=== PATIENT | female | born 1940 | race Caucasian/White ===

== ENCOUNTER 2016-12-10 05:58 | Day surgery (SDC) | payer MEDICARE ==
[2016-12-10] VITALS (8 sets, daily range): BP systolic 116–141; BP diastolic 61–74; PULSE 55–67; RESP 11–20; O2SAT 96–100
[~2016-12-10] VITALS: Ht 154.9 cm; Wt 54.5 kg
[~2016-12-10 05:58] MED LIST: ACET325T51 PO; ASPI-973 PO; CALC-786 PO; COD1CAPS16 PO; LEVO75TA4 PO; LISI-571 PO; MULT-1018 PO; ROSU40TA PO
[2016-12-10] MEDS ORDERED: fentaNYL-PF 50 mCg/mL 2 mL Inj ONE (05:59)
[2016-12-10] MEDS ORDERED: Propofol 10,000 mCg/mL 20 mL Inj ONE (05:59)
[2016-12-10] MEDS ORDERED: Phenylephrine/NS 100 mCg/mL 10 mL Syringe IVPUSH ONE (05:59)
[2016-12-10] MEDS ORDERED: Ondansetron 2 mg/mL 2 mL Inj ONE (05:59)
[2016-12-10] MEDS ORDERED: MetoCLOpramide 5 mg/mL 2 mL Inj ONE (05:59)
[2016-12-10] MEDS ORDERED: Dexamethasone 4 mg/mL Inj ONE (05:59)
[2016-12-10] MEDS ORDERED: Clindamycin 600 mg/50 mL D5W IV ONE (06:00)
[2016-12-10] MEDS: Lactated Ringer's 1,000 ML IV SCH ×2 (06:53→07:44)
[2016-12-10] MEDS ORDERED: Bupivacaine 0.5% 50 mL Inj INFILTRATE ONE (08:13)
[2016-12-10] MEDS ORDERED: Lactated Ringer's 1,000 ML IV SCH (08:35)
[2016-12-10] MEDS ORDERED: MetoCLOpramide 5 mg/mL 2 mL Inj IVPUSH PRN (08:35)
[2016-12-10] MEDS ORDERED: Phenylephrine 10,000 mCg/mL Inj IVPUSH PRN (08:35)
[2016-12-10] MEDS ORDERED: Atropine 0.4 mg/mL Inj IVPUSH PRN (08:35)
[2016-12-10] MEDS ORDERED: fentaNYL-PF 50 mCg/mL 2 mL Inj IVPUSH PRN (08:35)
[2016-12-10] MEDS ORDERED: Lactated Ringer's 500 ML IV PRN (08:35)
[2016-12-10] MEDS ORDERED: EPHEDrine Sulfate 50 mg/mL Inj IVPUSH PRN (08:35)
[2016-12-10] MEDS ORDERED: Ondansetron 2 mg/mL 2 mL Inj IVPUSH PRN (08:35)
--- NOTE | 2016-12-10 08:37 | PCM.HPANE ---
Patient Data Surgeon Admitting Provider: Attending Provider:Ivan Neff MD Primary Care Physician:Oralia Hodge MD Other Provider:Marian Marie Anesthesia Reason for Visit Axillary Mass, Neck Mass Ht/WT & BMI Height (Feet): 5 Height (Inches): 1 Weight (Kilograms): 54.49 Body Mass Index 22.00 Allergies Coded Allergies: Penicillins (Verified Adverse Reaction, Severe, MOUTH SORES, 04/21/13) ezetimibe (Verified Adverse Reaction, Severe, "ILL", 04/21/13) metformin (Verified Adverse Reaction, Severe, GI UPSET, 04/21/13) simvastatin (Verified Adverse Reaction, Severe, "ILL", 04/21/13) Past Anesthesia History Anesthesia History: Denies:: Abnormal Airway, Anesthesia Reactions, Difficult Intubation, Fam Anesthesia Reaction, Fam Malignant Hypertherm, Malignant Hyperthermia Diabetes History Hx Diabetes?: No (pt denies ) Type of Diabetes: Type II Glycemic Control: Diet Controlled MRSA MRSA: No Medications Blood Thinner: Aspirin Hypertension Medication: Yes Home Meds Incl Beta Parvez: No Reported Medications Acetaminophen 325 Mg Fbvuli527 Mg PO Q4H PRN For Pain Ref 0 12/05/16 Multivitamin (Multi Vitamin Daily)1 Each Tablet1 Each PO DAILY 30 Days Ref 0 12/05/16 Lisinopril 5 Mg Tablet5 Mg PO DAILY #30 TABLET Ref 0 12/05/16 Levothyroxine 75 Mcg Anxtpp40 Mcg PO DAILY Ref 0 12/05/16 Rosuvastatin Calcium (Crestor)40 Mg Ndhlfs35 Mg PO DAILY 30 Days Ref 0 12/05/16 Vit A & D3 in Cod Liver Oil (Cod Liver Oil Softgel)1 Each Capsule1 Each PO DAILY 12/05/16 Calcium Carb & Cit/Vitamin D3 (Citracal + D ER Tablet)1 Each Tablet.er1 Each PO DAILY 12/05/16 Aspirin 81 Mg Pnlhss96 Mg PO DAILY Ref 0 12/05/16 Discontinued Reported Medications Cholecalciferol-Expunged Drug, Do Not Renew! (Vitamin D3-Expunged Drug, Do Not Renew!)2,000 Unit Tablet2,000 Unit PO DAILY 04/21/13 Temazepam-Expunged Drug, Do Not Renew! (Restoril-Expunged Drug, Do Not Renew!) 15 Mg Cap15 Mg PO HS PRN 04/21/13 Omeprazole-Expunged Drug, Do Not Renew! 20 Mg Capsule.dr20 Mg PO BID 04/21/13 MULTIVITAMIN-Expunged Drug, Do Not Renew! (MULTI VITAMIN -Expunged Drug, Do Not Renew!)1 Each Tablet1 Each PO DAILY 04/21/13 Lisinopril-Expunged Drug, Do Not Renew! 10 Mg Drykrw50 Mg PO DAILY #30 TAB 04/21/13 Levothyroxine-Expunged Drug, Do Not Renew! (Levoxyl-Expunged Drug, Do Not Renew! )75 Mcg Ojhwln96 Mcg PO DAILY 04/21/13 Fish Oil/Dha/Epa-Expunged Drug, Do Not Renew! (Fish Oil 1,200 Mg-Expunged Drug, Do Not Renew)1 Each Capsule1 Each PO DAILY 04/21/13 Rosuvastatin-Expunged Drug, Do Not Renew! (Crestor-Expunged Drug, Do Not Renew!) 40 Mg Qdlwzx43 Mg PO DAILY #30 TAB For Cholesterol Management. 04/21/13 Atenolol-Expunged Drug, Do Not Renew! 50 Mg Nbkzfw46 Mg PO DAILY 04/21/13 Aspirin-Expunged Drug, Do Not Renew! 81 Mg Tab81 Mg PO DAILY 04/21/13 History History of ENT Problems?: No HEENT History: Positive for:: Cataracts (bilateral surgery) Denies:: Abnormal Airway Difficult Intubation Dysphagia Glaucoma Hearing Problem Denture Type: None Teeth Condition: Within Normal Limits Hx of Heart Problems?: Yes Cardiovascular History: Positive for:: Hypertension Denies:: AICD Abdominal Aortic Aneurism Atrial Fibrillation Cardiac Surgery Chest Pain Heart Murmur Irregular Heartbeat Pacemaker Peripheral Vascular Rheumatic Fever Hx of Respiratory Problem?: No Respiratory History: Denies:: Asthma COPD Emphysema Oxygen Administration Pneumonia Tuberculosis Use of C-PAP Machine Use of Inhalers / NEBS Hx Neurologic Problems?: No Neurological History: Denies:: CVA Dementia Headaches Multiple Sclerosis Parkinson's Disease Seizures Hx of GI Problems?: Yes Hx of Problems?: Yes Genitourinary History: Positive for:: Kidney Stones (HX OF) Denies:: Urinary Tract Infection (bladder infection one month ago, cleared now) Female Hx: Denies:: Currently (post menopausal ) Problems with Breasts? Skin History: Positive for:: History Skin Disorders? (right axillary mass, right side neck current admission problem) Denies:: Pressure Ulcers Hx Musculoskeletal Problems?: Yes Musculoskeletal History: Positive for:: Rheumatoid Arthritis Denies:: Fibromyalgia Joint Replacement Osteoarthritis Systemic Lupus Hx of Psycho/Social Problems?: No Psycho Social History: Denies:: Anxiety Hx Depression Hx Surgeries?: Yes (APPY,LT TRIGGER FINGER RELEASE,BILAT CTR'S,RT NECK TUMOR EXC.) Hx Any Other Health Problems?: Yes Other History: Positive for:: Thyroid Disease (hx of parathyroidectomy) Denies:: Cancer Endocrine Disease Hospitalization History Blood Transfusions: Positive for:: Accept Blood Products? Denies:: Blood Transfusions Hx Diabetes: No (pt denies ) Hx Alcohol Use: NoHx Substance Use: NoHave You Smoked inLast 12 mo: No Stop/Bang S-Snoring: Do You Snore Loudly: No T-Tired: feel tired, fatigued: Yes O-Obsered: Observed not breath: No P-Blood Pressure: treated: Yes B- Body Mass Index > 35 kg/m2: No A- Age over 50: Yes N- Neck Large Circumference: No G- Gender Male: No KYLEE Total Score: 3 Risk Assessment Category Category 1A: Patient has history of documented sleep apnea, and HAS NOT received any narcotic, sedative or anesthesia administration during this stay. Category 1B: Patient has history of documented sleep apnea, and HAS received any narcotic , sedative or anesthesia administration during this stay Category 2: Patient has SUSPECTED Obstructive Sleep Apnea, and HAS received any narcotic , sedative or anesthesia administration during this stay. Category 3: Patient has SUSPECTED Obstructive Sleep Apnea and HAS NOT received narcotic, sedative or anesthesia administration during this stay. Category 4: Outpatient in Procedural Areas with known sleep apnea or who screen positive for High Risk via the STOP/BANG questionnaire. Exam Exam General Appearance: Alert, Oriented X3, Cooperative, No Acute Distress HEENT/AIRWAY: MP 2, Neck Movement (FROM), Mouth Opening (3 FBMO) Lungs: Normal Air Movement Heart: Regular Rate/Rhythm Plan Impression Patient chart reviewed, patient interviewed and anesthestic plan with risks, benefits, and alternatives discussed, and informed consent obtained. NPO per Anesth. Guidelines: Yes ASA Physical Status: ASA2 Mod Systemic Disease Anesthetic Plan: GA Bene/Risks/Altern/Consents: Yes HP Complete Prior to Induction: Yes Jone Zuniga MD December 10, 2016 06:50
[2016-12-10] MEDS ORDERED: HYDROcodone-APAP 5-325 mg Tablet PO PRN (09:05)
--- NOTE | 2016-12-10 10:07 | OP ---
[address] [address] OPERATIVE REPORT PATIENT: FAITH CHARLES : 1940 MR#: [id number] ADMIT: 12/10/2016 JOB ID: [id number] DATE OF SURGERY: 12/10/2016 PREOPERATIVE DIAGNOSIS(ES): 1. Recurrent right neck mass. 2. Large symptomatic right axillary mass. OPERATION: 1. Excision of 3.5 cm recurrent fatty tumor, right neck. 2. Excision of 10 cm fatty tumor, right axilla. POSTOPERATIVE DIAGNOSIS(ES): SURGEON: Ivan Neff MD CLINICAL MANAGER HOME CARE: Osman De Santiago PA-C INDICATIONS: The patient is a 76-year-old female. She has developed an enlarging right axillary mass that causes localized discomfort. Also, years ago, she had a right neck mass which has recurred, and is medial and anterior to the existing incision. After discussing options with the patient, it was elected to proceed with excision of both. 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 It was grossly completely removed but had an irregular margin. Likely, there was an incomplete excision done years ago. The right axillary mass was not as well defined, but again appeared to be a lipoma. It was excised. There is no evidence of malignancy or gross evidence of breast tissue. DESCRIPTION OF PROCEDURE: At the beginning and end of the operation, the SCOAP checklist was completed. An LMA anesthetic was induced using ChloraPrep. Her right neck, breast, axilla and upper extremity were prepped and draped in the usual fashion. She received local anesthesia with 0.5% plain bupivacaine. The neck mass was excised first. An incision was designed following skin lines and extending from the previous incision. With sharp dissection in dissecting through scar tissue, the mass in question was excised. Hemostasis obtained with cautery. The wound was closed with deep dermal 3-0 Vicryl and running subcuticular 4-0 Monocryl. The incision for the axillary mass was then designed, also infiltrated with 0.5% plain bupivacaine. Dissection was carried down into the axilla through the clavipectoral fascia. The underlying mass was identified and excised using sharp and blunt dissection, and using the LigaSure for hemostasis. A 15-[place] [address] drain was placed through a separate stab wound, secured with 2-0 nylon. Both specimens were submitted to Pathology. Estimated blood loss 10 cc. No apparent complications. The final sponge, needle and instrument counts were announced as correct, and the patient was returned to recovery in stable condition. Critical assistance was provided by Osman De Santiago PA-C.
--- NOTE | 2016-12-10 12:23 | PCM.ANEP1 ---
Post Anesthesia Phase 1 PACU Phase 1 Assessment Vital Signs Vital Signs Date Time Temp Pulse Resp B/P Pulse Ox O2 Delivery O2 Flow Rate FiO2 12/10/16 10:38 63 18 116/62 98 Room Air 12/10/16 09:42 36.0 55 16 141/74 100 Room Air 12/10/16 09:30 58 13 131/61 98 Room Air 12/10/16 09:25 57 20 126/74 100 Simple Mask 8 12/10/16 09:20 55 11 137/66 98 Simple Mask 8 12/10/16 09:15 59 12 140/70 98 Simple Mask 8 12/10/16 09:13 36.1 60 14 141/68 98 Simple Mask 8 12/10/16 06:54 35.8 67 14 125/66 96 Room Air Anesthetic Administered: GA Level of Alertness: Awake, talking ROWLEY's with Equal Strength: Yes Pain: No Nausea or Vomiting: No Cardiovascular Function and Hy: No Airway Device: Oralpharangeal Airway Lungs: Normal Air Movement Dermatome Level: Full Sensation Complications: No Follow up Care: No Jone Zuniga MD December 10, 2016 12:23
--- NOTE | 2016-12-13 10:10 | PATH ---
SURGICAL PATHOLOGY Attending Physician:Yousuf Bailey CASE STATUS: Signed Out PATIENT NAME: FAITH CHARLES PID: [id number] : 1940 DATE COLLECTED:12/10/2016 18:15 SPECIMEN: 1: Mass, NOS 2: Mass, NOS CLINICAL HISTORY: 1. RIGHT NECK MASS 2. RIGHT AXILLARY MASS FINAL DIAGNOSIS: 1.RIGHT NECK MASS: BENIGN FIBROADIPOSE TISSUE. No evidence of malignancy. 2.RIGHT AXILLARY MASS: MULTIPLE (24) BENIGN LYMPH NODES. No evidence of neoplasia. ICD10 code R22.1 R22.31 GROSS DESCRIPTION: The specimens are received in formalin, labeled with the patient's name, and sublabeled as the following: (1) right neck mass; (2) right axillary mass. (1) The specimen consists of an unoriented piece of adipose tissue (3.1 x 1.7 x 0.7 cm) containing a chaudhry-white solid firm nodule (0.4 x 0.4 x 0.3 cm). The remaining adipose tissue is unremarkable. Ink code: black-resection margin. Section code: (1A) nodule, bisected; (1B) remaining adipose tissue, serially sectioned. Specimen entirely submitted. (2) The specimen consists of multiple pieces of adipose tissue (10.2 x 9.7 x 1.3 cm in aggregate) containing multiple lymph nodes (0.2 x 0.2 x 0.1 cm-2.0 x 1.7 x 0.8 cm). Section code: (2A-2D) multiple intact lymph nodes; (2E-2G) one lymph node in each cassette, bisected; (2H-2I) one lymph node, serially sectioned; (2J) adipose tissue, pharmaceutical specialty representative. 12/12/16 JM MICRO DESCRIPTION: See diagnosis. ICD-9 CODES: CPT CODES: 1: 70726 2: 96502 Electronically Signed Out Cat Yanez MD [facility] Pathology [facility] [address], [place] [address] Technical component performed at [facility], [facility] [address], [place], [address]
== END 2016-12-10 23:59 | disposition home or self-care (01) ==
LOC: SAS 05:58
PROVIDERS: ATTEND Surgery
DX: D21.0 Benign neoplasm of connective and other soft tissue of head, face and neck (principal); D36.0 Benign neoplasm of lymph nodes; I10 Essential (primary) hypertension; E78.5 Hyperlipidemia, unspecified; M06.9 Rheumatoid arthritis, unspecified; E11.9 Type 2 diabetes mellitus without complications; E03.9 Hypothyroidism, unspecified; N39.3 Stress incontinence (female) (male)
CPT/HCPCS: 21552; 24071; J1100; J2370; J2405; J2765; J3010; J7120